=== PATIENT | female | born 1990 | race Hispanic/Latino ===

== ENCOUNTER 2024-01-04 21:25 | Emergency (ER) | payer BC, OTHER ==
--- OUTSIDE RECORDS SUMMARY | 2024-01-04 21:29 | XMS REPORT | Continuity of Care Document ---
Author Name Unknown Address [address] [place] [address] [facility] Address [address] [place] [address] Care Team Providers Care Housesmith Name Role Phone [email or web address]_Kamargya_S Attending Clinician Unavaila ESME Granados Attending Clinician Unavailable Darcie_Deisy Attending Clinician Unavailable ALBA Attending Clinician Unavailable MIYA CORMIER Attending Clinician Unavaila michela Campbell Attending Clinician Unavailable Jennifer Dey Attending Clinician [phone] Provider, [facility] Attending Clinician Un available JENNIFER NEWMAN Attending Clinician Unavailable [facility] Attending Clinician Radha Eugene RN Attending Clinician ASHLEE Mccrary Attending Clinician Unavailable DR VALE CHRISTIANESN(CANDI) Attending Clinician Unavaila Ciro Kaba Attending Clinician Unavailable GC_GCBZW_Mandieyala_S Admitting Clinician Unavaila michela Cormier_Deisy Admitting Clinician Unavailable ALBA Admitting Clinician Unavailable Kassandra_Torin Admitting Clinician Unavailable DR VALE CHRISTIANSEN(CANDI) Admitting Clinician Unavaila michela Payers Payer Name Policy Type Policy Number Effective Date Expirati on Date Source [place] [id number] 2021 00:00:00 AET [id number] 2020 00:00:00 [facility]LY [facility] [id number] 2018 00:00:00 2020 00:00:00 Problems Condition Name Condition Details Condition Category Status Onset Date Resolution Date Last Treatment Date Treating Clinician Comments Source Carbuncle of vulva Carbuncle of Vulva Problem Active 2018-05 00:00: 00 [facility] Uses oral contracept ion Uses Oral Contracept ion Problem Active 2018-05 00:00: 00 [facility] Gynecologi c examinatio n Gynecologi c Examinatio n Problem Active 2018-05 00:00: 00 [facility] Venereal disease screening Venereal Disease Screening Problem Active 2018-05 00:00: 00 [facility] Impacted cerumen Impacted Cerumen Problem Active [facility] Otitis media Otitis Media Problem Active [facility] Viral upper respirator y tract infection Viral Upper Respirator y Tract Infection Problem Active [facility] Allergies, Adverse Reactions, Alerts Allergy Name Allergy Type Status Severity Reaction(s) Onset Date Inactive Date Treating Clinician Comments Source PENICILL INS Drug Class Active Hives 09-01 00:00: 00 [facility] Penicill ins Propensi ty to adverse reaction s Active Hives 09-01 00:00: 00 [facility] NO KNOWN ALLERGIE S Drug Class Active [facility] PENICILL INS Allergy to substanc e Active Moderate Hives [facility] Social History Social Habit Start Date Stop Date Quantity Comments Source Exposure to SARS-CoV-2 (event) Not sure [facility] Sex Assigned [facility] Tobacco use and exposure 2020-02-07 00:00:00 2020-02-07 00:00:00 Never used [facility] Tobacco Comment 2019-09-02 00:00:00 2019-09-02 00:00:00 social [facility] Smoking Status Start Date Stop Date Source Former Smoker [facility] Light tobacco smoker 2020-02-07 00:00:00 [facility] Medications Ordered Medication Name Filled Medication Name Start Date Stop Date Current Medication? Ordering Clinician Indication Dosage Frequency Signature (SIG) Comments Components Source methylPREDN ISolone 4 mg tablets 15 00:00: 00 2020- 09-22 04:59 :00 No [id number] Take by mouth SEE-INSTRU CTIONS for 6 days. follow package directions [facility] ALBUTEROL INHALE 02-06 13:53: 11 Yes Inhale as needed. [facility] montelukast sodium (SINGULAIR ORAL) 02-06 13:53: 11 Yes Take by mouth daily. [facility] norgestimat e-ethinyl estradioL (FEMYNOR) 0.25-35 mg-mcg per tablet 02-06 13:53: 11 Yes Femynor 0.25 mg-35 mcg tablet TAKE 1 TABLET BY MOUTH EVERY DAY [facility] benzonatate (TESSALON PERLES) 100 mg capsule 02-06 00:00: 00 02-21 04:59 :00 No [id number] 100mg Take 1 capsule by mouth 3 (three) times daily for 14 days. [facility] maalox:diph enhydrAMINE :lidocaine 2 % viscous 1:1:1 02-06 00:00: 00 02-12 04:59 :00 No [id number] 10mL Take 10 mL by mouth as needed (Swish and spit) for up to 5 days. [facility] ALBUTEROL INHALE 09-01 16:25: 31 Yes Inhale as needed. [facility] fluticasone propionate (FLONASE NASAL) 09-01 16:25: 31 Yes Use in each nostril as needed. [facility] montelukast sodium (SINGULAIR ORAL) 09-01 16:25: 31 Yes Take by mouth daily. [facility] budesonide- formoteroL (SYMBICORT) 80-4.5 mcg/actuati on inhaler 09-01 00:00: 00 Yes [id number] 2{puff} Inhale 2 Puffs 2 (two) times daily. [facility] albuterol sulfate HFA 90 mcg/actuati on aerosol inhaler INHALE 2 PUFFS BY MOUTH EVERY 6 HOURS NEEDED albuterol sulfate HFA 90 mcg/actuati on aerosol inhaler INHALE 2 PUFFS BY MOUTH EVERY 6 HOURS NEEDED No albuterol sulfate HFA 90 mcg/actuat ion aerosol inhaler INHALE 2 PUFFS BY MOUTH EVERY 6 HOURS NEEDED [facility] Protonix 20 mg tablet,samantha yed release Take 2 tablets every day by oral route for 90 days. Protonix 20 mg tablet,samantha yed release Take 2 tablets every day by oral route for 90 days. No 2 Q1D Protonix 20 mg tablet,del ayed release Take 2 tablets every day by oral route for 90 days. [facility] albuterol sulfate HFA 90 mcg/actuati on aerosol inhaler INHALE 2 PUFFS EVERY 4-6 HOURS NEEDED FOR SHORTNESS OF BREATH, COUGH, OR WHEEZING albuterol sulfate HFA 90 mcg/actuati on aerosol inhaler INHALE 2 PUFFS EVERY 4-6 HOURS NEEDED FOR SHORTNESS OF BREATH, COUGH, OR WHEEZING No albuterol sulfate HFA 90 mcg/actuat ion aerosol inhaler INHALE 2 PUFFS EVERY 4-6 HOURS NEEDED FOR SHORTNESS OF BREATH, COUGH, OR WHEEZING [facility] Estarylla 0.25 mg-35 mcg tablet TAKE ONE (1) TABLET(S) BY MOUTH ONCE A DAY. Estarylla 0.25 mg-35 mcg tablet TAKE ONE (1) TABLET(S) BY MOUTH ONCE A DAY. No Estarylla 0.25 mg-35 mcg tablet TAKE ONE (1) TABLET(S) BY MOUTH ONCE A DAY. [facility] Lo Loestrin Fe 1 mg-10 mcg (24)/10 mcg (2) tablet Take 1 tablet every day by oral route. Lo Loestrin Fe 1 mg-10 mcg (24)/10 mcg (2) tablet Take 1 tablet every day by oral route. No 1 Q1D Lo Loestrin Fe 1 mg-10 mcg (24)/10 mcg (2) tablet Take 1 tablet every day by oral route. [facility] Immunizations Ordered Immunization Name Filled Immunization Name Date Status Comments Source influenza, injectable, quadrivalent influenza, injectable, quadrivalent 2019-02-22 00:00:00 Completed [facility] influenza, injectable, quadrivalent influenza, injectable, quadrivalent 2016-02-24 00:00:00 Completed [facility] influenza, injectable, quadrivalent influenza, injectable, quadrivalent Unknown Completed [facility] influenza, injectable, quadrivalent influenza, injectable, quadrivalent Unknown Completed [facility] Vital Signs Vital Name Observation Time Observation Value Gwen rhodes Body Weight 2023-03-04 00:00:00 264.1 [lb_av] [facility] Height 2023-03-04 00:00:00 64 [in_i] [facility] BMI (Body Mass Index) 2023-03-04 00:00:00 45.3 kg/m2 [facility] BP Systolic 2023-03-04 00:00:00 148 mm[Hg] [facility] BP Diastolic 2023-03-04 00:00:00 107 mm[Hg] [facility] Height 2021-11-06 00:00:00 64 [in_i] [facility] BMI (Body Mass Index) 2021-11-06 00:00:00 47.4 kg/m2 [facility] BP Systolic 2021-11-06 00:00:00 140 mm[Hg] [facility] Body Weight 2021-11-06 00:00:00 276 [lb_av] [facility] BP Diastolic 2021-11-06 00:00:00 97 mm[Hg] [facility] BP Diastolic 2020-09-20 00:00:00 95 mm[Hg] [facility] Height 2020-09-20 00:00:00 64 [in_i] [facility] BMI (Body Mass Index) 2020-09-20 00:00:00 48.5 kg/m2 [facility] BP Systolic 2020-09-20 00:00:00 132 mm[Hg] [facility] Body Weight 2020-09-20 00:00:00 282.4 [lb_av] [facility] Systolic blood pressure 2020-02-07 13:51:00 120 mm[Hg] [facility] Diastolic blood pressure 2020-02-07 13:51:00 88 mm[Hg] [facility] Heart rate 2020-02-07 13:51:00 112 /min [facility] Body temperature 2020-02-07 13:51:00 37.39 Jeanette [facility] Respiratory rate 2020-02-07 13:51:00 17 /min [facility] Body height 2020-02-07 13:51:00 162.6 cm [facility] Body weight 2020-02-07 13:51:00 124.739 kg [facility] BMI 2020-02-07 13:51:00 47.20 kg/m2 [facility] Oxygen saturation in Arterial blood by Pulse oximetry 2020-02-07 13:51:00 96 /min [facility] Systolic blood pressure 2019-09-02 16:29:00 131 mm[Hg] [facility] Diastolic blood pressure 2019-09-02 16:29:00 86 mm[Hg] [facility] Heart rate 2019-09-02 16:21:00 113 /min [facility] Respiratory rate 2019-09-02 16:21:00 19 /min [facility] Body height 2019-09-02 16:21:00 162.6 cm [facility] Body weight 2019-09-02 16:21:00 117.935 kg [facility] BMI 2019-09-02 16:21:00 44.63 kg/m2 [facility] Oxygen saturation in Arterial blood by Pulse oximetry 2019-09-02 16:21:00 98 /min [facility] Systolic blood pressure 2019-09-02 16:29:00 131 mm[Hg] [facility] Diastolic blood pressure 2019-09-02 16:29:00 86 mm[Hg] [facility] Heart rate 2019-09-02 16:21:00 113 /min [facility] Respiratory rate 2019-09-02 16:21:00 19 /min [facility] Body height 2019-09-02 16:21:00 162.6 cm [facility] Body weight 2019-09-02 16:21:00 117.935 kg [facility] BMI 2019-09-02 16:21:00 44.63 kg/m2 [facility] Oxygen saturation in Arterial blood by Pulse oximetry 2019-09-02 16:21:00 98 /min [facility] Height 2019-04-27 00:00:00 64 [in_i] [facility] BMI (Body Mass Index) 2019-04-27 00:00:00 45.2 kg/m2 [facility] Body Weight 2019-04-27 00:00:00 263.2 [lb_av] [facility] Procedures Procedure Date / Time Performed Performing Clinicia n Source POCT RAPID STREP SCREEN FOR GROUP A 2020-02-07 14:14:00 Nessa Figueroa [facility] COVID-19 (PCR MOLECULAR TESTING) 2020-02-07 13:48:00 Jennifer Newman [facility] POCT GRP A STREP (MOLECULAR) 2019-09-02 16:30:00 Olivia Marsh [facility] Plan of Care Planned Activity Planned Date Details Comments Source Diagnostic Test Pending 2023-03-04 00:00:00 pap, LB + reflex to HR HPV if ASC-U [code = pap, LB + reflex to HR HPV if ASC-U] [facility] Diagnostic Test Pending 2023-03-04 00:00:00 STI panel [code = STI panel] [facility] Diagnostic Test Pending 2023-03-04 00:00:00 test, urine [code = test, urine] [facility] Diagnostic Test Pending 2023-03-04 00:00:00 urinalysis, dipstick [code = urinalysis, dipstick] [facility] Diagnostic Test Pending 2023-03-04 00:00:00 HBsAg (hepatitis B surface Ag), serum [code = HBsAg (hepatitis B surface Ag), serum] [facility] Diagnostic Test Pending 2023-03-04 00:00:00 HIV (1+2) Ab screen, serum [code = HIV (1+2) Ab screen, serum] [facility] Diagnostic Test Pending 2023-03-04 00:00:00 RPR (rapid plasma reagin), serum [code = RPR (rapid plasma reagin), serum] [facility] Diagnostic Test Pending 2023-03-04 00:00:00 hsv (1+2) igg Ab, serum [code = hsv (1+2) igg Ab, serum] [facility] Group Instructions [facility] Group Encounters Start Date/Time End Date/Time Encounter Type Admission Type Attending [facility] Facility Care Department Encounter ID Source 2023-03-25 00:00:00 2023-03-25 00:00:00 Outpatient GC_GCBZW_Ka diyala_S PRIV [facility] [id number] [facility] 2023-03-04 14:16:00 2023-03-04 14:16:00 Outpatient ESME VALENTE [facility] [id number] [facility] 2023-03-04 00:00:00 2023-03-04 00:00:00 Esme Carty [facility]ICKER-BC: [address], [address], [place] [address] , Ph. [phone] [facility] - OBGYN [id number] [facility] 2023-03-03 00:00:00 2023-03-03 00:00:00 Outpatient Rutledge_L [facility]G [id number] [facility] 2023-03-03 00:00:00 2023-03-03 00:00:00 Outpatient Rutledge_L MMG MMG [id number] [facility] 2021-12-19 00:00:00 2021-12-19 00:00:00 Outpatient LISTER_MELI SSA [facility] [id number] [facility] h Program 2021-11-06 11:51:00 2021-11-06 11:51:00 Outpatient Rutledge_L MMG MMG [id number] [facility] 2021-11-06 11:40:00 2021-11-06 11:40:00 Outpatient MIYA CHENG [facility] [id number] [facility] 2021-11-06 00:00:00 2021-11-06 00:00:00 Miya Cormier MD: [address] [address] , Ph. [phone] [facility] [id number] [facility] 2021-09-06 10:57:00 2021-09-06 10:57:00 Outpatient Rutledge_L MMG MMG [id number] [facility] 2021-09-06 10:57:00 2021-09-06 10:57:00 Outpatient Rutledge_L MMG MMG [id number] [facility] 2020-09-20 02:49:00 2020-09-20 02:49:00 Outpatient Rutledge_L MMG MMG [id number] [facility] 2020-09-20 02:49:00 2020-09-20 02:49:00 Outpatient Rutledge[facility]L [id number] 2020-09-20 00:00:00 2020-09-20 00:00:00 Miya Cormier MD: [address] [address] , Ph. [phone] [facility] [id number] [facility] 2020-05-24 09:55:00 2020-05-24 09:55:00 Outpatient V_Landis MM[facility] MMG [id number] [facility] 2020-05-24 09:55:00 2020-05-24 09:55:00 Outpatient V_Landis MM[facility] MMG [id number] [facility] 2020-04-12 02:19:00 2020-04-12 02:19:00 Outpatient V_Landis [facility] MMG [id number] [facility] 2020-02-10 00:00:00 2020-02-10 00:00:00 Telephone Jennifer Newman [facility] [id number] [id number] [facility] 2020-02-07 08:45:57 2020-02-08 16:21:37 Ur[facility] Care Provider[facility] [address] .114 [id number] [facility] 2020-02-08 00:00:00 2020-02-08 00:00:00 Telephone Trent [facility] [address] .114 [id number] [id number] [facility] 2020-02-07 09:00:00 2020-02-07 09:00:00 Outpatient R [facility] [id number] [facility] 2020-02-07 08:40:00 2020-02-07 08:40:00 Outpatient R [facility] [id number] [facility] 2019-12-23 03:14:00 2019-12-23 03:14:00 Outpatient V_Landis [facility] [id number] [facility] 2019-11-19 15:00:00 2019-11-19 15:00:00 Outpatient R [facility] [id number] [facility] 2019-09-02 11:40:00 2019-09-02 11:40:00 Outpatient R JENNIFER NEWMAN [facility] [id number] [facility] 2019-09-02 11:13:52 2019-09-02 11:33:52 Urgent Care Pob1, Acute Care Clinic [facility] [address] .114 [id number] [facility] 2019-09-02 11:13:52 2019-09-02 11:33:52 Urgent Care Pob1, Acute Care Clinic [facility] [address] [id number] [id number] 2019-09-02 00:00:00 2019-09-02 00:00:00 [facility] [id number] [id number] [facility] 2019-09-02 00:00:00 2019-09-02 00:00:00 [facility] [id number] [id number] 2019-04-27 17:06:00 2019-04-27 17:06:00 Outpatient ASHLEE DUMONT [facility] [id number] [facility] 2019-04-27 00:00:00 2019-04-27 00:00:00 Ashlee Harkins, NP: [address], [place] [address] , Ph. [phone] MM[facility] [id number] [facility] 2006-10-02 07:10:00 2006-10-02 07:10:00 Outpatient Cior PEREA [facility] [id number] [facility] 2003-11-29 10:29:00 2003-11-29 10:29:00 Outpatient Ciro PEREA [facility] [id number] [facility] Results Test Description Test Time Test Comments Results Result Co mments Source [facility] macro (dipstick) panel - [id number] 13:33:59* Test Item Value Reference Range Interpretation Comme nts Leukocytes (test code = Leukocytes) Negative Nitrite (test code = Nitrite) negative Urobilinogen (test code = Urobilinogen) .2 Protein (test code = Protein) Negative pH (test code = pH) 6.5 Blood (test code = Blood) Negative Specific [place] (test code = Specific [place]) 1.015 Ketone (test code = Ketone) Negative Bilirubin (test code = Bilirubin) Negative Glucose (test code = Glucose) Negative Appearance (test code = Appearance) Clear Color (test code = Color) Yellow [facility]2020-02-08 02:46:00* Test Item Value Reference Range Interpretation Comme nts SARS-CoV-2 PCR (test code = 81908-0) Not Detected Not Detected LATRICIA (test code = LATRICIA) Hologic Aptima SARS-CoV-2 Assay is a nucleic acid amplification test intended for the qualitative detection of RNA from SARS-CoV-2 from nasopharyngeal (FOOD SAMPLER) specimens. ?It is used under Emergency Use Authorization (EUA) by FDA. A positive result is indicative of the presence of SARS-CoV-2 RNA. ?Clinical correlation with patient history and other diagnostic information is necessary to determine patient infection status. A negative (Not Detected) result does not preclude SARS-CoV-2 infection. ?Clinical correlation with patient history and other diagnostic information should be used in patient management decisions. Invalid: Unable to generate a valid test result on this specimen. ?Please submit a new specimen for repeat testing if clinically indicated. Lab Interpretation (test code = 73960-4) Normal [facility]2020-02-08 02:46:00* Test Item Value Reference Range Interpretation Comme nts SARS-CoV-2 PCR (test code = 81212-9) Not Detected Not Detected LATRICIA (test code = LATRICIA) Hologic Aptima SARS-CoV-2 Assay is a nucleic acid amplification test intended for the qualitative detection of RNA from SARS-CoV-2 from nasopharyngeal (FOOD SAMPLER) specimens. ?It is used under Emergency Use Authorization (EUA) by FDA. A positive result is indicative of the presence of SARS-CoV-2 RNA. ?Clinical correlation with patient history and other diagnostic information is necessary to determine patient infection status. A negative (Not Detected) result does not preclude SARS-CoV-2 infection. ?Clinical correlation with patient history and other diagnostic information should be used in patient management decisions. Invalid: Unable to generate a valid test result on this specimen. ?Please submit a new specimen for repeat testing if clinically indicated. Lab Interpretation (test code = 56619-4) Normal [facility] RAPID STREP SCREEN FOR GROUP [id number] 14:14:00* Test Item Value Reference Range Interpretation Comme nts POCT GP A STREP (test code = 44816-3) neg Negative - Negative [facility] RAPID STREP SCREEN FOR GROUP [id number] 14:14:00* Test Item Value Reference Range Interpretation Comme nts POCT GP A STREP (test code = 87119-8) neg Negative - Negative [facility] RAPID STREP SCREEN FOR GROUP [id number] 14:14:00* Test Item Value Reference Range Interpretation Comme nts POCT GP A STREP (test code = 80811-9) neg Negative - Negative [facility] GRP A STREP (MOLECULAR)2019-09-02 16:40:00* Test Item Value Reference Range Interpretation Comme nts POCT GP A STREP (test code = 44405-2) negative Negative - Negative Lab Interpretation (test cod e = 91051-2) Normal [facility], [id number] 16:25:44* Test Item Value Reference Range Interpretation Comme [facility] Test (test code = Test) negative [facility] macro (dipstick) panel - [id number] 16:24:54* Test Item Value Reference Range Interpretation Comme nts Leukocytes (test code = Leukocytes) Negative Nitrite (test code = Nitrite) negative Urobilinogen (test code = Urobilinogen) .2 Protein (test code = Protein) Negative pH (test code = pH) 7.0 Blood (test code = Blood) Small Specific [place] (test code = Specific [place]) 1.020 Ketone (test code = Ketone) Negative Bilirubin (test code = Bilirubin) Negative Glucose (test code = Glucose) Negative Appearance (test code = Appearance) Clear Color (test code = Color) Yellow [facility] MONOCLONALHSE2016-09-09 11:45:00* Test Item Value Reference Range Interpretation Comme nts PREG UR (test code = PGU) Negative NEGATIVE
[2024-01-04 21:57] LABS: Absolute Eosinophils 0.1 K/uL (0-0.5); Absolute Lymphocytes (CBC) 2.4 K/uL (0.7-4.9); Absolute Monocytes 0.7 K/uL (0.1-1.3); Absolute Neutrophil 9.3 K/uL (1.8-8.0); Basophils % 0.4 % (0-1.3); Eosinophils % 0.8 % (0-4.4); Hematocrit 41.3 % (36.0-45.0); MCHC 33.8 g/dL (32.0-36.0); MCV 88.5 fL (80-100); MPV 8.1 fL (7.6-11.3); Monocytes % 5.7 % (3.3-12.3); Neutrophils % 74.1 % (41.7-73.7); Platelets 317 thou/uL (152-406); RBC Red Blood Cell Count 4.67 M/uL (3.86-4.86); Red Cell Distribution Width 13.2 % (12.1-15.2)
[2024-01-04] MEDS ORDERED: NA CHLORIDE 0.9% 1,000 ML ONE (22:11)
[2024-01-04 22:18] LABS: Anion Gap 10.5 mEq/L (5.0-15.0); BUN Blood Urea Nitrogen 6 mg/dL (7-18); Bicarbonate 24 mEq/L (21-32); Glomerular Filtration Rate 101 ml/min (=/>90); Glucose Level 108 mg/dL (74-106); Magnesium 2.3 mg/dL (1.6-2.4); Potassium 3.5 mEq/L (3.5-5.1); Sodium Level 139 mEq/L (136-145)
[2024-01-04 22:26] LABS: Troponin High Sensitivity < 3.0 pg/mL (<58.9)
--- NOTE | 2024-01-04 22:34 | RAD REPORT ---
EXAM DESCRIPTION: RAD - Chest Single View - 01/04/2024 10:30 pm CLINICAL HISTORY: PALPITATIONS COMPARISON: No comparisons FINDINGS: Lines: None. Lungs: No evidence of edema or pneumonia. Pleural: No significant pleural effusions or pneumothorax. Cardiac: The heart size is within normal limits. Mediastinum: Within normal limits. Bones: No acute fractures. Other: None IMPRESSION: No acute cardiopulmonary disease.
--- NOTE | 2024-01-04 23:33 | EDPHYS ---
Physician Documentation [facility] Name: José Luis Velazquez Age: 33 yrs Sex: Female : 1990 Arrival Date: 01/04/2024 Time: 21:25 Bed 7 Private MD: ED Physician Steve Siddiqi HPI: 01/03 22:42 This 33 yrs old Female presents to ER via Ambulatory with complaints of Heart ny3 palpitations. 22:42 33-year-old female with past medical history of asthma, anxiety presents to the [facility] [place] emergency department for palpitations began at 3:30 PM. Patient states she took albuterol and was sitting at a movie and noticed a racing heart rate. Patient states she has had similar symptoms in the past. Patient endorses mild shortness of breath. She denies nausea, vomiting, diaphoresis. 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 - Infectious Disease History:: Denies. - Social history:: Smoking status: Reported history of juuling and/or vaping. ROS: 22:42 Constitutional: Negative for fever, and chills. Neck: Negative for injury, pain, and ms3 swelling, 22:42 Abdomen/GI: Negative for abdominal pain, nausea, vomiting, diarrhea, and constipation, MS/Extremity: Negative for injury and deformity, 22:42 Cardiovascular: Positive for palpitations, 22:42 Respiratory: Positive for shortness of breath, Exam: 22:42 Constitutional: This is a well developed, well nourished patient who is awake, alert, ms3 and in no acute distress. Chest/axilla: Normal chest wall appearance and motion. Nontender with no deformity. 22:42 Respiratory: Lungs have equal breath sounds bilaterally, clear to auscultation and percussion. No rales, rhonchi or wheezes noted. No increased work of breathing, no retractions or nasal flaring. Abdomen/GI: Soft, non-tender, with normal bowel sounds. No distension or tympany. No guarding or rebound. No evidence of tenderness throughout. Skin: Warm, dry with normal turgor. Normal color with no rashes, no lesions, and no evidence of cellulitis. MS/ Extremity: Pulses equal, no cyanosis. Neurovascular intact. Full, normal range of motion. 22:42 Cardiovascular: Rate: tachycardic, Rhythm: regular, 22:45 ECG was reviewed by the Attending Physician. ms3 Vital Signs: 21:39 BP 157 / 122; Pulse 129; Resp 20; Temp 99.2; Pulse Ox 100% ; Weight 111.13 kg; Height 5 bm8 ft. 4 in. ; Pain 0/10; 22:43 BP 158 / 108; Pulse 107; Resp 18; Temp 99; Pulse Ox 100% ; Pain 0/10; bm8 23:11 BP 132 / 95; Pulse 105; Resp 20; Temp 99; Pulse Ox 97% ; Pain 0/10; bm8 21:39 Body Mass Index 42.05 (111.13 kg, 162.56 cm) bm8 21:39 Pain Scale: Adult bm8 22:43 Pain Scale: Adult bm8 23:11 Pain Scale: Adult bm8 [place] Coma Score: 21:54 Eye Response: spontaneous(4). Motor Response: obeys commands(6). Verbal Response: bm8 oriented(5). Total: 15. 22:43 Eye Response: spontaneous(4). Motor Response: obeys commands(6). Verbal Response: bm8 oriented(5). Total: 15. MDM: 22:03 Patient medically screened. ms3 22:42 Differential diagnosis: arrythmia, Electrolyte abnormality versus pulmonary embolism. ms3 23:32 Data reviewed: vital signs, nurses notes. ms3 01/03 21:44 Order name: Basic Metabolic Panel; Complete Time: 22:36 ms3 01/03 21:44 Order name: CBC with Diff; Complete Time: 22:05 ms3 01/03 21:44 Order name: D-Dimer; Complete Time: 22:36 ms3 01/03 21:44 Order name: Magnesium; Complete Time: 22:36 ms3 01/03 21:44 Order name: Troponin HS; Complete Time: 22:36 ms3 01/03 21:44 Order name: XRAY Chest (1 view); Complete Time: 22:36 ms3 01/03 21:44 Order name: EKG; Complete Time: 21:45 ms3 01/03 21:44 Order name: Cardiac monitoring; Complete Time: 21:51 ms3 01/03 21:44 Order name: EKG - Nurse/Tech; Complete Time: 21:44 ms3 01/03 21:44 Order name: IV Saline Lock; Complete Time: 21:51 ms3 01/03 21:44 Order name: Labs collected and sent; Complete Time: 21:51 ms3 01/03 21:44 Order name: O2 Per Protocol; Complete Time: 21:51 ms3 01/03 21:44 Order name: O2 Sat Monitoring; Complete Time: 21:51 ms3 EC:45 Rate is 120 beats/min. Rhythm is regular. QRS [place] is Normal. [place] interval is normal. ms3 QRS interval is normal. Clinical impression: Sinus tachycardia. Interpreted by me. Reviewed by me. Administered Medications: 22:10 Drug: NS 0.9% IV 1000 ml IV at 1000 ml once Route: IV; Rate: 1000 ml; Site: left bm8 antecubital; 23:11 Follow up: Response: No adverse reaction; IV Status: Completed infusion; IV Intake: bm8 1000ml 22:41 CANCELLED (Physician Discretion): ativan1 mg IVP once ms3 Disposition Summary: 01/04/24 23:32 Discharge Ordered Notes: Location: Home ms3 Condition: Stable ms3 Diagnosis - Tachycardia, unspecified ms3 - Palpitations ms3 Followup: ms3 - With: Private Physician - When: 2 - 3 days - Reason: Recheck today's complaints Discharge Instructions: - Discharge Summary Sheet ms3 - Palpitations ms3 - Palpitations, [id number] ms3 - Sinus Tachycardia ms3 Forms: - Medication Reconciliation Form ms3 - Antibiotic Education ms3 - Prescription Opioid Use ms3 - Patient Portal Instructions ms3 - Leadership Thank You Letter ms3 Signatures: Dispatcher [employer] EDMS Steve Siddiqi DO DO ms3 Rhina Uriostegui, RN RN ha1 Jin Reynoso RN RN bm8 Corrections: (The following items were deleted from the chart) 22:41 22:36 Ativan IVP 1 mg IVP once ordered. ms3 ms3
--- NOTE | 2024-01-04 23:33 | ER ---
Nurse's Notes [facility] Name: José Luis Velazquez Age: 33 yrs Sex: Female : 1990 Arrival Date: 01/04/2024 Time: 21:25 Bed 7 Private MD: Diagnosis: Tachycardia, unspecified;Palpitations Presentation: 01/03 21:29 Chief complaint: Patient states: I woke up feeling a little sore throat chest tightness [facility] so I used albuterol that I usually used for my asthma. about an hour ago I started to notice that my heart rate was up within the 130s. 21:29 Coronavirus screen: Vaccine status:. Ebola Screen: No symptoms or risks identified at [facility] this time. Initial Sepsis Screen: Does the patient meet any 2 criteria? No. Patient's initial sepsis screen is negative. Does the patient have a suspected source of infection? No. Patient's initial sepsis screen is negative. Risk Assessment: Do you want to hurt yourself or someone else? Patient reports no desire to harm self or others. Onset of symptoms was January 04, 2024. 21:29 Method Of Arrival: Ambulatory [facility] 21:29 Acuity: ANAYELI 2 1 Triage Assessment: 21:29 General: Appears in no apparent distress. Behavior is calm, cooperative. Pain: ha1 Complains of pain in left subscapular area and right subscapular area Pain does not radiate. Pain currently is 5 out of 10 on a pain scale. Quality of pain is described as pressure. Neuro: Level of Consciousness is awake, alert, obeys commands, Oriented to person, place, time, situation. Cardiovascular: Reports palpitations, Capillary refill < 3 seconds Patient's skin is warm and dry. Rhythm is sinus tachycardia. Respiratory: Airway is patent Respiratory effort is even, unlabored, Respiratory pattern is regular, symmetrical. 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 - Infectious Disease History:: Denies. - Social history:: Smoking status: Reported history of juuling and/or vaping. Screenin:54 [facility] ED Fall Risk Assessment (Adult) History of falling in the last 3 months, bm8 including since admission No falls in past 3 months (0 pts) Confusion or Disorientation No (0 pts) Intoxicated or Sedated No (0 pts) Impaired Gait No (0 pts) Mobility Assist Device Used No (0 pt) Altered Elimination No (0 pt) Score/Fall Risk Level 0 - 2 = Low Risk Oriented to surroundings, Maintained a safe environment, Educated pt \T\ family on fall prevention, incl call for assistance when getting out of bed, Assessed \T\ reinforced patient's understanding of fall precautions, Hourly rounding (assess needs \T\ fall precautionary measures) done, Used ambulatory aids as needed (educated on \T\ assisted with), Used gait belt as appropriate. Abuse screen: Denies threats or abuse. Nutritional screening: No deficits noted. Tuberculosis screening: No symptoms or risk factors identified. Assessment: 21:54 General: Appears in no apparent distress. comfortable, Behavior is cooperative, bm8 appropriate for age, anxious. Pain: Denies pain. Neuro: No deficits noted. Level of Consciousness is awake, alert, obeys commands, Oriented to person, place, time, situation, Appropriate for age. Cardiovascular: Reports palpitations, shortness of breath, Heart tones S1 S2 present Capillary refill < 3 seconds Patient's skin is warm and dry. Pulses are all present. Rhythm is sinus tachycardia. Respiratory: No deficits noted. Airway is patent Trachea midline Respiratory effort is even, unlabored, Respiratory pattern is regular, symmetrical, Breath sounds are clear bilaterally. GI: No signs and/or symptoms were reported involving the gastrointestinal system. : No signs and/or symptoms were reported regarding the genitourinary system. EENT: No signs and/or symptoms were reported regarding the EENT system. Derm: No signs and/or symptoms reported regarding the dermatologic system. Musculoskeletal: No signs and/or symptoms reported regarding the musculoskeletal system. 22:43 Reassessment: Patient appears in no apparent distress at this time. Patient and/or bm8 family updated on plan of care and expected duration. Pain level reassessed. Patient is alert, oriented x 3, equal unlabored respirations, skin warm/dry/pink. Patient denies pain at this time. Patient states feeling better. Patient states symptoms have improved. 23:11 Reassessment: No changes from previously documented assessment. Patient and/or family bm8 updated on plan of care and expected duration. Pain level reassessed. Patient is alert, oriented x 3, equal unlabored respirations, skin warm/dry/pink. Vital Signs: 21:39 BP 157 / 122; Pulse 129; Resp 20; Temp 99.2; Pulse Ox 100% ; Weight 111.13 kg; Height 5 bm8 ft. 4 in. ; Pain 0/10; 22:43 BP 158 / 108; Pulse 107; Resp 18; Temp 99; Pulse Ox 100% ; Pain 0/10; bm8 23:11 BP 132 / 95; Pulse 105; Resp 20; Temp 99; Pulse Ox 97% ; Pain 0/10; bm8 21:39 Body Mass Index 42.05 (111.13 kg, 162.56 cm) bm8 21:39 Pain Scale: Adult bm8 22:43 Pain Scale: Adult bm8 23:11 Pain Scale: Adult bm8 [place] Coma Score: 21:54 Eye Response: spontaneous(4). Motor Response: obeys commands(6). Verbal Response: bm8 oriented(5). Total: 15. 22:43 Eye Response: spontaneous(4). Motor Response: obeys commands(6). Verbal Response: bm8 oriented(5). Total: 15. ED Course: 21:28 Patient arrived in ED. ra3 21:30 Steve Siddiqi DO is Attending Physician. ms3 21:39 Jin Reynoso, RN is Primary Nurse. bm8 21:39 Arm band placed on right wrist. bm8 21:40 Triage completed. ha1 21:54 Patient has correct armband on for positive identification. Bed in low position. Call bm8 light in reach. Side rails up X 1. Client placed on continuous cardiac and pulse oximetry monitoring. NIBP monitoring applied. electronic device monitor on. Pulse ox on. NIBP on. Door closed. Noise minimized. Pillow given. Verbal reassurance given. Head of bed elevated. 21:54 No provider procedures requiring assistance completed. Initial lab(s) drawn, by shayan robison sent to lab. EKG done, by ED staff, reviewed by Steve Siddiqi DO. Inserted saline lock: 20 gauge in left antecubital area, using aseptic technique. Blood collected. Flushed with 10 mL NS Missed attempt(s): 20 gauge in left forearm. Bleeding controlled, band aid applied, catheter tip intact. Patient maintains SpO2 saturation greater than 95% on room air. 22:31 XRAY Chest (1 view) In Process Unspecified. EDMS 23:48 Provided Education on: follow up with PCP. ha1 23:48 IV discontinued, intact, bleeding controlled, No redness/swelling at site. Pressure ha1 dressing applied. Administered Medications: 22:10 Drug: NS 0.9% IV 1000 ml IV at 1000 ml once Route: IV; Rate: 1000 ml; Site: left bm8 antecubital; 23:11 Follow up: Response: No adverse reaction; IV Status: Completed infusion; IV Intake: bm8 1000ml 22:41 CANCELLED (Physician Discretion): ativan1 mg IVP once ms3 Medication: 21:54 VIS not applicable for this client. bm8 Intake: 23:11 IV: 1000ml; Total: 1000ml. bm8 Outcome: 23:32 Discharge ordered by MD. ms3 23:48 Discharged to home ambulatory, ha1 23:48 Condition: stable 23:48 Discharge instructions given to patient, Instructed on discharge instructions, follow up and referral plans. Demonstrated understanding of instructions, follow-up care, 23:54 Patient left the ED. ha1 Signatures: Dispatcher [employer] EDMS Steve Siddiqi DO DO ms3 Rhina Uriostegui, RN RN ha1 Ramona Marques ra3 Jin Reynoso, RN RN bm8
[2024-01-05 00:15] VITALS: TEMP 99
[2024-01-05 00:17] VITALS: BP 132/95; O2SAT 97
--- NOTE | 2024-01-05 13:45 | EKG ---
Test Date: 2024-01-04 Test Time: 21:40:40 Chemical Lab Technician: RV MEASUREMENT RESULTS: Intervals: Rate: 120 IA: 144 QRSD: 82 QT: 324 QTc: 457 [place]: P: 48 IA: 144 QRS: 69 T: 36 INTERPRETIVE STATEMENTS: Sinus tachycardia Nonspecific T wave abnormality Abnormal ECG No previous ECG available for comparison Electronically Signed On 01-05-24 13:43:32 CDT by Van Keith
== END 2024-01-04 23:54 | disposition home or self-care (01) ==
LOC: ER 21:25
DX: R00.0 Tachycardia, unspecified (principal); F41.9 Anxiety disorder, unspecified
CPT/HCPCS: 93005; 85025; 80048; 36415; 83735; 85379; 84484; 71045; 96360; 99285; J7030